=== PATIENT | male | born 2000 | race Caucasian/White ===

== ENCOUNTER 2018-12-02 11:17 | Emergency (ER) | payer SELFPAY ==
[2018-12-02 12:05] VITALS: BP 120/83
--- NOTE | 2018-12-02 16:45 | ED ---
Substance Abuse/Use - HPI Summary HPI Summary: Pt here for legal blood draw with police. He was pulled over for concern of driving, has been on several medications and is currently pending a DWI. Pt states he has had no alcohol and has not slept all night. Denies any pain. Denies and MVA. Denies other symptoms other than fatigue. - History Of Current Complaint Chief Complaint: EDGeneral Stated Complaint: LEGAL BLOOD DRAW Time Seen by Provider: 12/02/18 11:25 Hx Obtained From: Patient Associated Signs And Symptoms: Negative - Allergies/Home Medications Allergies/Adverse Reactions: Allergies Allergy/AdvReac Type Severity Reaction Status Date / Time No Known Allergies Allergy Verified 12/02/18 11:41 Home Medications: Home Medications Alprazolam XR (NF) [Xanax XR (NF)] 1 - 2 mg PO DAILY 12/02/18 [History Confirmed 12/02/18] Methylphenidate HCl [Ritalin LA] 20 mg PO DAILY 12/02/18 [History Confirmed ] Methylphenidate HCl [Ritalin LA] 40 mg PO DAILY 12/02/18 [History Confirmed ] Sertraline* [Zoloft*] 100 mg PO BID 12/02/18 [History Confirmed 12/02/18] Zolpidem TAB* [Ambien TAB*] 10 - 20 mg PO BEDTIME PRN 12/02/18 [History Confirmed 12/02/18] risperiDONE TAB* [RisperDAL*] 2 - 4 mg PO DAILY 12/02/18 [History Confirmed ] traZODone TAB* [Desyrel TAB*] 50 - 100 mg PO BEDTIME 12/02/18 [History Confirmed 12/02/18] PMH/Surg Hx/FS Hx/Imm Hx Previously Healthy: Yes Infectious Disease History: No Infectious Disease History: Denies: Traveled Outside the [place] in Last 30 Days - Social History Occupation: Unemployed Lives: Alone Alcohol Use: Occasionally Hx Substance Use: Yes Substance Use Type: Reports: Marijuana Hx Tobacco Use: No Smoking Status (MU): Never Smoked Tobacco Review of Systems Positive: Fatigue. Negative: Fever, Chills Negative: Palpitations, Chest Pain Negative: Shortness Of Breath, Cough Negative: Abdominal Pain, Vomiting, Diarrhea Negative: Arthralgia, Myalgia Skin: Negative All Other Systems Reviewed And Are Negative: Yes Physical Exam Triage Information Reviewed: Yes Vital Signs On Initial Exam: Initial Vitals Temp Pulse Resp BP Pulse Ox 98.3 F 110 18 124/97 95 12/02/18 11:22 12/02/18 11:22 12/02/18 11:22 12/02/18 11:22 12/02/18 11:22 Vital Signs Reviewed: Yes Appearance: Positive: Well-Appearing, Well-Nourished Skin: Positive: Warm, Skin Color Reflects Adequate Perfusion Head/Face: Positive: Normal Head/Face Inspection Eyes: Positive: Normal, EOMI, Conjunctiva Clear Neck: Positive: No Lymphadenopathy Respiratory/Lung Sounds: Positive: Clear to Auscultation, Breath Sounds Present Cardiovascular: Positive: RRR, Pulses are Symmetrical in both Upper and Lower Extremities Musculoskeletal: Positive: Strength/ROM Intact Neurological: Positive: Speech Normal Psychiatric: Positive: Affect/Mood Appropriate Procedures - Sedation Patient Received Moderate/Deep Sedation with Procedure: No Diagnostics - Vital Signs Vital Signs Temp Pulse Resp BP Pulse Ox 12/02/18 12:04 98.3 F 99 18 120/83 97 12/02/18 11:22 98.3 F 110 18 124/97 95 - Laboratory Lab Statement: Any lab studies that have been ordered have been reviewed, and results considered in the medical decision making process. Course/Dx - Course Course Of Treatment: See HPI. Demetra Jessica RN to obtain legal blood draw with police at bedside. - Diagnoses Differential Diagnosis/HQI/PQRI: Positive: Other - legal blood draw, intoxication Provider Diagnoses: Routine lab draw Discharge ED - Sign-Out/Discharge Documenting (check all that apply): Patient Departure - Discharge Plan Condition: Stable Disposition: HOME Referrals: No Primary Care Phys,NOPCP [Primary Care Provider] - Additional Instructions: Legal blood draw - Billing Disposition and Condition Condition: STABLE Disposition: Home
== END 2018-12-02 11:55 | disposition home or self-care (01) ==
LOC: ED 11:17
DX: Z02.83 Encounter for blood-alcohol and blood-drug test (principal); Z79.899 Other long term (current) drug therapy
CPT/HCPCS: 99282